=== PATIENT | female | born 1970 | race Caucasian/White ===

== ENCOUNTER 2022-10-17 12:22 | Emergency (ER) | payer MEDICAID ==
[~2022-10-17] VITALS: Ht 177.8 cm; Wt 106.0 kg
[~2022-10-17 12:22] MED LIST: PRED20TA PO
[2022-10-17 12:40] VITALS: BP 138/83
[2022-10-17 13:51] LABS: BASOPHILS % (AUTO) 0.8 % (0-1); EOSINOPHILS % (AUTO) 0.5 % (0-6); HEMATOCRIT 39.1 % (35.0-45.0); LYMPHOCYTES # (AUTO) 1.3 X10'3 (1.1-4.8); LYMPHOCYTES % (AUTO) 26.9 % (21-51); MEAN CORPUSCULAR HEMOGLOBIN 30.9 PG (27.0-31.0); MEAN CORPUSCULAR HGB CONC 33.3 g/dL (33.0-36.5); MEAN CORPUSCULAR VOLUME 92.7 FL (78-98); MEAN PLATELET VOLUME 8.7 FL (7.4-10.4); MONOCYTES # (AUTO) 0.3 X10'3 (0-0.9); MONOCYTES % (AUTO) 6.1 % (2-12); NEUTROPHILS # (AUTO) 3.2 X10'3 (1.8-7.7); NEUTROPHILS % (AUTO) 65.7 % (42-75); PLATELET COUNT 201 X10'3 (140-440); RED BLOOD COUNT 4.22 X10'6 (4.20-5.60); RED CELL DISTRIBUTION WIDTH 12.9 % (11.5-14.5); WHITE BLOOD COUNT 4.9 X10'3 (4.5-11.0)
[2022-10-17 14:07] LABS: ALANINE AMINOTRANSFERASE 21 U/L (12-78); ALBUMIN 3.7 G/DL (3.4-5.0); ALBUMIN/GLOBULIN RATIO 1.2 (1.1-1.5); ALKALINE PHOSPHATASE 92 IU/L (46-116); ANION GAP 6 (8-16); ASPARTATE AMINO TRANSFERASE 21 U/L (10-37); BILIRUBIN,TOTAL 0.6 MG/DL (0.1-1.0); BLOOD UREA NITROGEN 11 MG/DL (7-18); BUN/CREATININE RATIO 11.7 (6.6-38.0); CHLORIDE 107 MMOL/L (99-107); CREATININE 0.94 MG/DL (0.40-0.90); GLUCOSE 90 MG/DL (70-104); POTASSIUM 3.7 MMOL/L (3.5-5.1); SODIUM 141 MMOL/L (135-145); TOTAL CARBON DIOXIDE 28.4 MMOL/L (24-32); TOTAL PROTEIN 6.9 G/DL (6.4-8.2); eGFR 62 ML/MIN
== END 2022-10-17 15:13 | disposition home or self-care (01) ==
LOC: ER 12:23
DX: F41.9 Anxiety disorder, unspecified (principal); R07.9 Chest pain, unspecified; J45.909 Unspecified asthma, uncomplicated; Z79.899 Other long term (current) drug therapy
CPT/HCPCS: 36415; 80053; 84484; 85025; 93005; 99284

== ENCOUNTER 2024-06-20 16:46 | Emergency (ER) | payer MEDICAID ==
[~2024-06-20] VITALS: Ht 177.8 cm; Wt 103.4 kg
[2024-06-20 16:55] VITALS: TEMP 98.4
[2024-06-20 17:15] LABS: BASOPHILS % (AUTO) 0.7 % (0-1); EOSINOPHILS # (AUTO) 0.1 X10'3 (0-0.9); EOSINOPHILS % (AUTO) 1.4 % (0-6); HEMATOCRIT 38.7 % (35.0-45.0); HEMOGLOBIN 13.3 g/dl (12.0-16.0); LYMPHOCYTES # (AUTO) 1.7 X10'3 (1.1-4.8); LYMPHOCYTES % (AUTO) 32.8 % (21-51); MEAN CORPUSCULAR HEMOGLOBIN 31.2 PG (27.0-31.0); MEAN CORPUSCULAR HGB CONC 34.2 g/dL (33.0-36.5); MEAN PLATELET VOLUME 9.2 FL (7.4-10.4); MONOCYTES # (AUTO) 0.3 X10'3 (0-0.9); MONOCYTES % (AUTO) 5.9 % (2-12); NEUTROPHILS % (AUTO) 59.2 % (42-75); PLATELET COUNT 192 X10'3 (140-440); RED BLOOD COUNT 4.25 X10'6 (4.20-5.60); WHITE BLOOD COUNT 5.1 X10'3 (4.5-11.0)
[2024-06-20 17:29] LABS: APTT 27 SECONDS (22-32); PROTHROMBIN TIME 10.3 SECONDS (9.0-12.0)
[2024-06-20 17:30] LABS: ALANINE AMINOTRANSFERASE 25 U/L (12-78); ALBUMIN 3.8 G/DL (3.4-5.0); ALBUMIN/GLOBULIN RATIO 1.2 (1.1-1.5); ALKALINE PHOSPHATASE 98 IU/L (46-116); ANION GAP 9 (8-16); ASPARTATE AMINO TRANSFERASE 15 U/L (10-37); BILIRUBIN,TOTAL 0.3 MG/DL (0.1-1.0); BLOOD UREA NITROGEN 15 MG/DL (7-18); BUN/CREATININE RATIO 17.4 (10.0-20.0); CALCIUM 8.8 MG/DL (8.5-10.1); CHLORIDE 108 MMOL/L (99-107); CREATININE 0.86 MG/DL (0.40-0.90); GLUCOSE 103 MG/DL (70-104); POTASSIUM 3.9 MMOL/L (3.5-5.1); SODIUM 142 MMOL/L (135-145); TOTAL CARBON DIOXIDE 25.5 MMOL/L (24-32); TOTAL PROTEIN 6.9 G/DL (6.4-8.2); eCRCL 80 ML/MIN; eGFR 69 ML/MIN
[2024-06-20 17:40] LABS: FREE T4 (FREE THYROXINE) 0.82 NG/DL (0.73-1.40); MAGNESIUM 1.9 MG/DL (1.5-2.4); PRO BRAIN NATRIURETIC PEPTIDE 143 PG/ML (0-125); THYROID STIMULATING HORMONE 2.28 ulU/ml (0.34-4.50)
[2024-06-20 18:00] VITALS: BP 134/84; PULSE 63; RESP 16; O2SAT 93
== END 2024-06-20 18:42 | disposition home or self-care (01) ==
LOC: ER 16:47
DX: R00.2 Palpitations (principal); R00.1 Bradycardia, unspecified; R42 Dizziness and giddiness; J45.909 Unspecified asthma, uncomplicated; F41.9 Anxiety disorder, unspecified; Z79.52 Long term (current) use of systemic steroids
CPT/HCPCS: 36415; 71045; 80053; 83735; 83880; 84439; 84443; 84484; 85025; 85610; 85730; 93005; 99285

== ENCOUNTER 2025-11-09 08:25 | Emergency (ER) | payer MEDICAID, OTHER ==
[~2025-11-09] VITALS: Ht 177.8 cm; Wt 101.9 kg
[2025-11-09 08:28] VITALS: TEMP 98.4
[2025-11-09] MEDS ORDERED: ONDA-245 PO (09:21)
--- NOTE | 2025-11-09 09:22 | Physician Documentation ---
History of Present Illness ~ Chief Complaint: Head Injury Stated Complaint: WC Time Seen by MD: 09:22 OK to notify your PCP?: Yes Primary Medical Doctor: Jeff VERDUZCO This is a 55-year-old female who presents to the emergency department due to concerns for symptoms of head injury. She notes that yesterday she was not paying attention and hit her head on a brick out cramping. She felt fine at the time, but today she endorses issues with feeling that her speech pattern is somewhat slow, headache, fatigue, and nausea. She denies loss of consciousness. She denies any vomiting. Negative stroke scale in triage. Tetanus within 5 years?: No Medication Reconciliation Allergies: Coded Allergies: No Known Allergies (Unverified , 11/09/25) Scheduled Ondansetron 8mg ODT (Ondansetron Odt), 1 TAB PO Q8H Prednisone* (Prednisone*), 40 MG PO DAILY Past Medical History Past Medical History: Asthma, Anxiety Past Surgical History: no surgical history Review of Systems ROS As stated above in the HPI, otherwise all systems are reviewed and negative. Physical Exam Vital Signs: Temperature: 98.4, Source: Temporal, Heart Rate: 66, Respiratory Rate: 18, BP: 148/96, Pulse Oximetry: 99, Weight: 101.900 Oxygen Flow Rate: 0 Physical Exam General: Alert, no apparent distress. HEENT: PERRL, EOMI, no injection, moist mucous membranes. Neck: Full range of motion. Respiratory: Lungs clear, no respiratory distress. Chest: No accessory muscle use. Cardiovascular: Regular rate and rhythm, no murmurs. Gastrointestinal: Soft, nontender, nondistended. Bowels sounds present. Extremities: Normal range of motion, no deformity. Neurologic: Oriented x4. Cranial nerves 2-12 intact. No nystagmus. PERRL. Psychiatric: Normal mood and affect. Skin: Normal color, warm and dry. No edema, no ecchymosis. Progress Results/Orders Results/Orders Vital Signs 11/09/25 11/09/25 08:28 09:26 Temp 98.4 Pulse 66 78 Resp 18 16 B/P (MAP) 148/96 145/78 Pulse Ox 99 98 O2 Flow Rate 0 Medical Decision Making Additional information obtaine: old records Findings Last visit 06/20/24 for palpitations Differential Dx:Considerations: Include: Closed head injury, Cervical spine injury, Skull facture, Fracture, Abrasion, Contusion, Foreign body, Laceration, Intoxication-alcohol, Intoxication-other drug, Substance abuse disorder, Personality disorder, Non-accidental trauma Additional Comment Cranial nerves are intact to exam. Negative stroke scale in triage. Patient is appropriate for home discharge with concussion care instructions. She will be given ondansetron to use as needed for nausea. She is instructed to use ibuprofen or Tylenol as needed for pain. She is instructed to follow up with the primary care provider, return for as per Departure Time of Disposition: 09:21 Disposition: 01 HOME / SELF CARE / HOMELESS Impression: Primary Impression: Concussion Condition: Stable Discharge Instructions: Post Concussion Syndrome,Adult Additional Instructions: Please see the provided instructions regarding concussion symptoms. Please see your primary care provider within the next week for recheck. Take the ondansetron as needed for nausea. Okay to use [id number] dosing of Tylenol and ibuprofen as needed for pain. See work note. Departure Forms: Excuse form Work or School Excused From: Work Excuse beginning now through the following date: Nov 12, 2025 Referrals: NO PRIMARY CARE PROVIDER (PCP) Prescriptions Ondansetron 8mg ODT (Ondansetron Odt) 8 Mg Tab.rapdis 1 TAB PO Q8H for nausea/vomiting for 2 Days, #6 TAB 0 Refills Prov: MARIO DANIELLE NP 11/09/25 Education Educated: Patient Educated regarding: diagnosis, treatment, prognosis, need for follow up Signature Scribe Signature: x Attestation: The note accurately reflects work and decisions made by me.Mario Newton NP 11/09/25 09:21 MARIO DANIELLE NP Nov 09, 2025 09:22
[2025-11-09 09:26] VITALS: BP 145/78; PULSE 78; RESP 16; O2SAT 98
== END 2025-11-09 09:26 | disposition home or self-care (01) ==
LOC: ER 08:25
DX: S06.0X0A Concussion without loss of consciousness, initial encounter (principal); F41.9 Anxiety disorder, unspecified; Z79.899 Other long term (current) drug therapy; X58.XXXA Exposure to other specified factors, initial encounter; Y93.89 Activity, other specified; Y92.89 Other specified places as the place of occurrence of the external cause; Y99.8 Other external cause status
CPT/HCPCS: 99283